=== PATIENT | female | born 2000 | race Caucasian/White ===

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

== ENCOUNTER 2019-04-07 17:45 | Emergency (ER) | payer MEDICAID, SELFPAY ==
[2019-04-07 17:47] VITALS: BP 149/95; PULSE 83; RESP 16; TEMP 36.4
[2019-04-07 17:48] VITALS: BP 149/95; PULSE 83; RESP 16; TEMP 36.4; BMI 25.9
[2019-04-07 20:42] LABS: Absolute Lymphocyte Count 2.04 X10^3/uL (0.83-4.51); Absolute Neutrophil Count 3.5 X10^3/uL (2.0-7.7); Basophil# 0.06 X10^3/uL; Eosinophil# 0.08 X10^3/uL; Eosinophils% 1.3 % (0-5); Hematocrit 46.6 % (37-47); Hemoglobin 15.6 g/dL (12.0-15.0); Lymphocyte # 2.04 X10^3/ul (4.0); Lymphocyte % 33.9 % (19-41); Mean Corp Hgb Conc 33.5 g/dL (32-36); Mean Corpuscular Volume 98.5 fL (81-99); Mean Platelet Vol. 10.4 fl (6.2-12.0); Monocyte# 0.28 X10^3/uL; Monocyte% 4.7 % (0-10); NRBC Flagged by Analyzer 0 % (0-5); Neutrophil # 3.54 X10^3/uL (2.7-7.7); Neutrophil % 58.8 % (47-70); Platelet Count 185 K/mm3 (150-450); RBC Distribution Width CV 11.7 % (11.6-14.6); RBC Distribution Width SD 42.8 fl (35.1-43.9); Red Blood Count 4.73 M/mm3 (4.2-5.4)
[2019-04-07 20:59] LABS: Anion Gap 6 (5-15); BUN 14 mg/dL (7-18); BUN/Creat Ratio 15.2 RATIO (10-20); Chloride 106 mmol/L (98-107); Creatinine, Serum 0.92 mg/dL (0.55-1.02); EST Glomerular Filtration Rate 82 mL/min (>60); Est Glom Filt Rate - Afr Amer 100 mL/min (>60); Estimated Creatinine Clearance 80.69 ml/min; Glucose 96 mg/dL (74-106); Sodium Level 137 mmol/L (136-145)
[2019-04-07 21:05] LABS: Internal QC Validated? YES +Cl - CLEAR BKGD; Pregnancy, Serum, hCG Quali. NEGATIVE Negative
[2019-04-07 21:49] VITALS: RESP 16
[2019-04-07 22:09] VITALS: PULSE 18
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
[2019-04-07 22:26] LABS: Amphetamine Urine VISTA NEGATIVE (<1000 ng/mL); Barbiturate Urine VISTA NEGATIVE (< 200 ng/mL); Benzodiazepine Urine VISTA NEGATIVE (< 200 ng/mL); Cocaine Urine VISTA NEGATIVE (< 300 ng/mL); Ecstacy Urine VISTA NEGATIVE (< 500 ng/mL); Methadone Urine VISTA NEGATIVE (< 300 ng/mL); PCP Urine VISTA NEGATIVE (< 25 ng/mL); THC Urine VISTA POSITIVE (< 50 ng/mL); Vista UDS pH Range 7
--- NOTE | 2019-04-07 22:28 | ED.DCSUM_ITS ---
History of Present Illness Chief Complaint: Mental Health Detail of Chief Complaint: Depression Informant: Patient, - - Aunt Onset: Weeks Narrative: Patient is a history bipolar disorder. She has previously been on buspirone, citalopram, Saphris, and gabapentin. This was prescribed by a nurse practitioner in [place]. Patient states she stopped taking the medications a month ago because they really were not helping her. Over the past 2 weeks she has noted worsening anxiety and depression. She has episodes where she feels very sad and slowly starts crying. Today she did cut her left forearm. She states she did it because she was upset and did feel something, not as a suicide attempt. Patient states he did not give her the end result that she thought it would, and does not want to cut again. Past Medical History - Allergies and Home Meds Allergies/Adverse Reactions: Allergies No Known Allergies Allergy (Verified 11/16/17 15:20) Primary Care Physician: Devin Gardner MD [Primary Care Provider] - Prior records reviewed: Yes Past Medical History: - - Reviewed Lives: With Family Smoking Status: Current every day smoker Review of Systems General: Denies: Chills, Fever Eyes: Denies: Visual changes - bilaterally ENT: Denies: Bilateral ear pain Cardiovascular: Denies: Chest pain Respiratory: Denies: Dyspnea Gastrointestinal: Denies: Abdominal pain, Nausea, Vomiting, Diarrhea Skin: Reports: Abrasions Neurological: Denies: Headache Psych: Reports: Depression, Anxiety Hematologic: Denies: Easy bruising Physical Exam Vital Signs/Narrative: Vital Signs Pulse Resp 04/07/19 22:09 18 L 04/07/19 21:49 16 Inital Vital Signs reviewed: Yes General: Well nourished, Well developed Head: Normocephalic ENT: Moist mucous membranes Neck: Supple Cardiovascular: Regular rate, Regular rhythm Respiratory: No distress, CTA bilaterally Abdomen: Soft, Nontender Extremities: Nontender Skin: - - Superficial linear abrasions on the volar left forearm. No full- thickness lacerations. Neurological: Alert, Oriented x3, Normal Strength, Normal Sensation Psychological: Normal affect, - - Patient cooperative and forthcoming when answering questions. She states she just wants to see someone surgically put back on medications and feel better. She denies suicidal ideation. She does feel that she can keep herself safe at home. Diagnostic/Tx/Re-eval - Medical Decision Making Patient was seen by social work as well as myself. Patient is able to safety plan at this time. We will set up intake at the counseling center for her tomorrow. She has tried behavioral health here previously but did not do well in the group therapy sessions. She feels that she would be more helped by an individual counseling program. Patient's aunt is at bedside with her. She agrees that the patient will be with family. They are encouraged to return if symptoms worsen. ED Disposition - Plan for ED Patient: Disposition: Home or Assisted Living Diagnosis: Depression Instructions: Depression Referrals: Counseling,Center [GROUP OF PHYSICIANS] - As soon as possible
[2019-04-07 22:52] VITALS: RESP 16
--- NOTE | 2019-04-09 14:56 | CM.ED ---
Social Work Follow-up call made to patient. Voicemail left requesting return phone call. Gisele ANDERSON, COLEMAN
== END 2019-04-07 22:53 | disposition home or self-care (01) ==
PROVIDERS: Emergency Provider Emergency Medicine; Family Provider Nurse Practitioner Family; PCP Family Medicine; Referring Provider Family Medicine
DX: F32.9 Major depressive disorder, single episode, unspecified (principal); F17.200 Nicotine dependence, unspecified, uncomplicated
CPT/HCPCS: 80048; 80307; 80320; 84703; 85025; 99283; G0480

== ENCOUNTER 2022-05-28 08:00 | Outpatient (RCR) | payer MEDICAID, SELFPAY ==
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
--- NOTE | 2022-05-28 09:00 | BH.SGPN.GN ---
Behaviors/Verbalizations/Mental Status: []Eye contact is good. Motor activity is appropriate. Appearance is casual. Speech is Appropriate. Mood is anxious. Affect is flat. Thoughts are linear and logical. No evidence of psychosis. Reviewed daily check in sheet and pt's scores were within pt's baseline. Client Response/Progress/Benefit: [] Pt responded somewhat well to session, quiet, but appeared to be listening to peers. Pt's first day of IOP tx and pt declined to share today. Pt received supportive statements from mechanical field engineer and peer. Pt appeared to benefit from not isolating today and connecting with peers. Pt is in IOP to gain healthy coping skills and reduce depression and anxiety. Pt will continue IOP tx to prevent decompensation, maintain safety, and learn healthy coping skills. Narrative Note: []
--- NOTE | 2022-05-28 10:10 | BH.SGPN.GN ---
Behaviors/Verbalizations/Mental Status: [] Eye contact is poor. Motor activity is appropriate. Appearance is casual. Speech is Appropriate. Mood is anxious. Affect is congruent. Thoughts are linear and logical. No evidence of psychosis. Client Response/Progress/Benefit: [] Pt had limited participation in group discussions. Active participant in experiential activity. Attentive during psychoeducation. Attentive as peers shared types of social supports which included; family, friends, PCP, mental health providers, support groups, pets, ourselves, community classes, etc. Attentive as group identified mental health benefits of social support which patient and group identified as; it can help with emotional release, help one to feel heard, validation, distraction, they can encourage us, provide motivation, provide accountability, and boost our mood. Attentive as peers worked together to identify obstacles to utilizing support which included; feeling like one doesn't deserve support, past negative experiences, cognitive distortions, and avoidance/mood. Benefited from increased awareness of mental health benefits of social support and obstacles that prevent one from utilizing support. Will continue in IOP to maintain safety, increase healthy coping skills, and prevent decompensation. Narrative Note: []
--- NOTE | 2022-05-28 14:06 | BH.COMM ---
Communication Note - Communication with Client Communication Note: Therapist met with pt to complete initial paperwork, CSSR assessment, and discuss pt goals for tx. Pt CSSR screening indicates a low to moderate risk for suicide on this date. Pt has had one prior attempt while in active cocaine addiction over 3 years ago in which pt unintentionally overdosed. Reports ambivilance to living when this occurred however. Denies any other attempts or gestures. Denies active SI, plan, or intent on this date. Reports hx of cutting/buring self-harm behaviors, however has not engaged in this in the past 3 years. Deneis any changes since original intake. Pt reports wanting to work on improving her overall emotion regulation skills and better managing sx of depression and anxiety. Expressed difficulties with maintaining healthy relationships and often struggles with healthy boundary setting. Pt would like to improve her healthy coping skills, better understand her mental health diagnosis, and improve relationship with self. Pt reports anxiety about the group setting and did not want to meet for full session. Will continue to encourage group tx and follow-up.
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
[2022-05-29 09:09] VITALS: BP 146/84; PULSE 77
--- NOTE | 2022-05-29 10:10 | BH.SGPN.GN ---
Behaviors/Verbalizations/Mental Status: []Pt alert and oriented, casually dressed and groomed. Eye contact good. Motor activity appropriate. Speech within normal limits. Affect constricted, mood anxious. Thoughts linear, logical, no signs of hallucinations or delusions. Client Response/Progress/Benefit: []Pt was a passive participant in group discussions, but took notes. Participated with peers in experiential activity. Pt participated in an interactive discussion with peers in which they worked together to define what coping skills are. Group then identified unhealthy coping skills which included; isolating, sleeping to avoid, drugs and alcohol, and constant distractions. Benefited from increased awareness and education the benefits of having a healthy coping repertoire and consequences of unhealthy coping on mental health and relationships. Will continue IOP tx to prevent decompensation, reduce avoidance, and increase knowledge of healthy coping skills. ? Narrative Note: []
--- NOTE | 2022-05-29 11:10 | BH.SGPN.GN ---
Behaviors/Verbalizations/Mental Status: []Client alert and oriented, casually dressed and groomed. Eye contact fair. Motor activity appropriate. Speech within normal limits, quiet. Affect constricted, mood dysthymic and anxious. Thoughts linear, logical, no signs of hallucinations or delusions Client Response/Progress/Benefit: []Client responded well to session, taking notes and contributing. Group discussed the different categories of coping skills which included distraction, emotional release, grounding, self-love, and thought challenging. Client participated in creating a coping skills ?menu? from the five categories of coping skills. Client's coping skill menu included: reading, weighted blanket, assertively communicate, doing the hard but better choice, and redirecting thoughts. Appeared to benefit from increasing repertoire of healthy coping skills. Will continue IOP to improve daily functioning, increase healthy coping, and prevent decompensation.
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
--- NOTE | 2022-05-29 12:33 | BH.DR.ITP ---
Initial Treatment Plan Patient Information Visit Information: ADMISSION DATE: EXPECTED LOS: 4-6 weeks Problems/Symptoms Problem #1:: Mood instability Symptom:: Sadness, hopelessness, worthlessness, anhedonia, biological disruption of sleep, low energy, decreased concentration, guilt, passive thoughts of , fleeting, passive suicidal ideation Problem #2:: Anxiety Symptom:: Worry, rumination, panic attacks, nightmares, flashbacks and avoidance
--- NOTE | 2022-05-30 10:10 | BH.SGPN.GN ---
Behaviors/Verbalizations/Mental Status: [] Eye contact is fair. Motor activity is appropriate. Appearance is casual. Speech is Appropriate. Mood is anxious. Affect is constricted. Thoughts are linear and logical. No evidence of psychosis. Client Response/Progress/Benefit: [] Pt was an engaged participant AEB listening attentively to others, taking notes, and engaging in activity. Attentive during psychoeducation. Along with peers was able to identify barriers to taking action on her mental health which included: fear of failure, the unknown, change, one's environment, past negative experiences, being passive, and fear of vulnerability. Identified several symptoms and stressors that she feels are holding her back from progress such as past trauma, addiction, negative thoughts, and toxic people. Benefited from increased self-awareness of obstacles. Will continue in IOP to improve daily functioning, increase healthy coping, and prevent decompensation.
--- NOTE | 2022-05-30 11:15 | BH.SGPN.GN ---
Behaviors/Verbalizations/Mental Status: []Client alert and oriented, casually dressed and groomed. Eye contact fair. Motor activity appropriate. Speech within normal limits. Affect constricted, mood anxious. Thoughts linear, logical, no signs of hallucinations or delusions. Client Response/Progress/Benefit: []Client responded well to session, taking notes and participating in worksheet discussion. Client connected with the zones of action/change and reported that making sustainable change comes from stepping out of one?s comfort zone into the learning zone. Client set a goal to gain control over her anxiety that leads to avoidance. Client reported her goal is to create a fear ladder that will slowly expose her to anxious situations to help decrease avoidance behaviors. Client identified support needed would be working with therapist to create fear ladder. Appeared to benefit from identifying a small goal to benefit mental health. Will continue IOP tx to increase healthy coping, improve daily functioning, and prevent decompensation.
--- NOTE | 2022-06-11 10:10 | BH.SGPN.GN ---
Behaviors/Verbalizations/Mental Status: []Pt alert and oriented, casually dressed and groomed. Eye contact good. Motor activity appropriate. Speech within normal limits. Affect flat, mood dysthymic. Thoughts linear, logical, no signs of hallucinations or delusions. Client Response/Progress/Benefit: []Attentive during psychoeducation on SMART (Specific, Measurable, Achievable, Realistic, Timely) goals AEB by note-taking. Attentive during group discussion on benefits to setting goals which group identified as; reduced anxiety, increased motivation, better relationships, and increase confidence. Attentive while peers identified obstacles to setting/completing goals which included; procrastination, mental health, believing they are too difficult, procrastination, self-doubt, and poor time management. Engaged during activity and was able to relate the activity to goal-setting topic. Benefited from increased awareness on benefits to goal-setting, obstacles to developing and following through with a goal, and strategies for setting goals. Pt missed last week due to self-reported medication side effects. Will continue in IOP to prevent decompensation, reduce avoidance, and improve daily functioning. ? Narrative Note: []
--- NOTE | 2022-06-11 11:10 | BH.SGPN.GN ---
Behaviors/Verbalizations/Mental Status: []Eye contact good. Alert and oriented. Motor activity is appropriate. Appearance is casual, grooming appropriate. Speech Appropriate. Mood is depressed and anxious. Affect is constricted. Thoughts are linear and logical. No evidence of psychosis or hallucinations. Client Response/Progress/Benefit: [] Client was attentive during discussion and engaged in activity portions of group. Willing to complete the worksheet challenging each participant to develop a personal SMART goal. Client chose the goal of getting up earlier each day she is not scheduled for IOP for the next week. Client stated this will benefit them by giving them more time to be productive as well as engage in activities they enjoy, reduce stress, and begin creating healthy new habits. Client identified barriers which included: lack of motivation to get up, difficulties falling asleep the night before, and anxiety. Client receptive to identifying solutions for these barriers and willing to begin working on this goal. Benefited from this group by developing a short-term SMART goal related to mental health. Will continue IOP tx to further improve emotion regulation and stress management, increase awareness of and use of healthy coping skills, and prevent decompensation. Narrative Note: []
--- NOTE | 2022-06-12 10:08 | BH.SGPN.GN ---
Behaviors/Verbalizations/Mental Status: []Pt alert and oriented, casually dressed and groomed. Eye contact good. Motor activity appropriate. Speech within normal limits. Affect flat, mood anxious and depressed. Thoughts linear, logical, no signs of hallucinations or delusions. Client Response/Progress/Benefit: []Pt participated at times during the group discussions. Participated during interactive discussion on defining conflict (internal/external) and possible benefits to conflict. Attentive during psychoeducation on conflict styles and engaged during small group activity in which peers identified the benefits and consequences to each conflict style. Pt identified that their primary conflict style as avoiding. Pt shared ?I avoid any type of conflict? due to fear which leads to pt feel unstable and having mental health crises per her report. Benefited from increased awareness of the impact of conflict styles in mental health. Will continue in IOP to reduce isolation, improve daily functioning, and increase use of healthy coping skills. ? Narrative Note: []
--- NOTE | 2022-06-12 10:59 | PCM.BH.PN_ITS ---
Progress Note Progress Note: History of Present Illness/Interim History: The patient is a 21-year-old single female with a history of borderline personality disorder, PTSD, depression, anxiety, history of cocaine abuse (3 years sober). I last saw the patient 2 weeks ago and at that time her Zoloft was increased to 200 mg p.o. daily. D oxepin was added to help with sleep but the patient said she still did not sleep on it for few days and it was discontinued by her outpatient psychiatric provider and trazodone was prescribed. Patient requested to have Seroquel decreased and it was discontinued by her outpatient provider 2 weeks ago. The patient states that since that time she has felt more anxious and is having more panic attacks. She is vomiting every day when her anxiety is bad and she is having panic attacks several times a day. She is unable to hold medication down well. She was unable to attend the IOP program last week due to the side effects from her increased anxiety after discontinuing Seroquel. Her hallucinations are less lately and much less noticeable. Patient denies any self-harm or thoughts of self-harm and feels she is benefiting from the IOP program. The patient states that the only thing that helps her anxiety is Ativan. She denies any signs of pritesh or pritesh. She states that Remeron also did not help her in the past. She still has path of passive thoughts of a few times a week and fleeting, passive suicidal ideation on most days. But she states that she would not ever commit suicide because she does not want to hurt her mother. She denies homicidal ideation, hallucinations or delusions or symptoms of pritesh. She has cut back on her use of energy drinks. She still snores and gasps loudly during the night and has not scheduled her sleep study. Current Psychiatric Medications: [] Adderall XR 25 mg p.o. every morning (off and on since age 4); Zoloft 200 mg p.o. daily (x2 weeks and (; trazodone 100 mg p.o. nightly; Mental Status Examination: [] Patient is a 21-year-old female who is overweight and wearing glasses with bilateral lateral nose piercings. She is casually dressed and groomed with good hygiene and ambulatory with a normal gait. She has no psychomotor agitation or retardation. She is cooperative during the interview. Eye contact is good and speech is normal rate and rhythm and fluent with no pressure. Mood is depressed. Affect is mildly constricted. Thought process is goal-directed and organized. Thought content: There is evidence of passive thoughts of and fleeting, passive suicidal ideation. There is no evidence of active suicidal ideation, homicidal ideation, hallucinations or delusions. Reality testing is intact. Intelligence is average. Judgment is intact. Insight is limited. Impulsivity is high. Diagnoses: [] 1. Bipolar, NOS (F31.9) 2. Borderline personality disorder 3. PTSD 4. Marijuana use disorder 5. History of cocaine use disorder in full remission for 3 years 6. Rule out sleep apnea 7. Financial, primary support and work issues Plan: [] The patient will continue the IOP program at [facility] as the structure, support, education and group therapy will hopefully prevent worsening of the patient's symptoms which might require hospitalization. The patient felt safe during the interview and if it anytime she does not feel safe she will let us know or go to the emergency room. The risk, options, possible complications and side effects of the medications were discussed with the patient again and she understands and accepts these. The patient agrees to try Zyprexa 2.5 mg p.o. twice daily in order to help with her anxiety, panic attacks and bipolar disorder. The patient also agrees to try Zofran 4 mg sublingual up to 3 times a day as needed for severe nausea and vomiting. The patient states that sometimes she is unable to hold her medications down when she feels very anxious. She agrees to schedule sleep study to rule out obstructive sleep apnea as the patient has history of never feeling rested and never sleeping well and her fianc? says she snores and gasps at night. Prescription is sent in for the Zyprexa and Zofran. I will see the patient in follow-up in 2 weeks and she will continue to follow-up with her outpatient providers.
--- NOTE | 2022-06-12 11:08 | BH.SGPN.GN ---
Behaviors/Verbalizations/Mental Status: []Pt alert and oriented, casually dressed and groomed. Eye contact good. Motor activity appropriate. Speech within normal limits. Affect congruent, mood euthymic. Thoughts linear, logical, no signs of hallucinations or delusions. Client Response/Progress/Benefit: []Pt engaged in session AEB contributing to discussion and engaging in activity. Pt did well to review current conflict style and its impact on mental health. Attentive and taking notes during discussion on strategies for more effectively managing conflict in personal life.? Pt participated in activity and did well to talk through choices with peers. Pt given handout on fair fighting rules and identified that they want to work on no yelling and taking a time out when things get heated. Pt shared she struggles with managing her emotions during conflict and sees how this causes more issues. Appeared to benefit from gaining strategies to help pt better manage conflict. Will continue IOP tx to prevent decompensation, improve daily functioning, and improve use of healthy coping skills. Narrative Note: []
--- NOTE | 2022-06-12 13:50 | BH.MDN ---
Multi-Disciplinary Note - Note 45-min Individual Time Started:: 09:17 Date: 06/11/22 Purpose of session/treatment goals addressed:: Purpose of session was to address goals 1 and 2 from MTP. Eye Contact:: Good Motor Activity:: Appropriate Appearance:: Casual Speech:: Appropriate Mood:: Anxious, Irritable, Depressed Affect:: Congruent Thoughts:: Linear, Logical, No evidence of hallucinations/delusions noted Staff Interventions:: psychoeducation on: - Anxiety maintenance cycles and impacts of anxiety on emotion regulation, CBT techniques, mindfulness skills, other - created a morning grounding routine. Client Response:: Client reported she has been struggling with effectively managing her mental health sx, specifically that of depression in the past two weeks. Reports that she has ?been laying in bed the past two weeks? due to being ill. Discussed no energy or desire to ?do anything? and as though her ?brain is mush?. Went on to indicate beliefs that some of her sx are related to her outpatient psychiatrist recently stopping her Seroquel. Request meeting with program psychiatrist regarding concerns for increased grogginess and potential increase in hallucinations. Went on to discuss that client?s primary concern today is managing her anxiety. Reports experiencing anxiety several times throughout the day and that this is worst in the morning upon first waking up. Shared some triggers for her anxiety include being alone, things not going according to a previously identified plan, and sensory related triggers. Noted that she difficulties completing daily tasks when anxious, often cancels plans, or has lashed out/become more irritable with experiencing an influx in anxiety. Shared feeling anxious about coming to group at times when she wakes up and her anxiety is worse. Client and therapist reviewed client?s morning routine and discussed the importance of making time for a consistent morning self-care and grounding routine prior to beginning the day. Client able to see how this may aid in reducing overall anxiety levels is she does not get up and immediately johnson to begin her day. Identified plans to begin incorporating coloring or deep breathing activities each morning. Will continue to follow-up regarding pt application of healthy grounding/anxiety management skills. Risks/Concerns:: Denies active suicidal ideation, plan or intention to date. Reports chronic passive SI which is pt's baseline. Progress Toward Goals/Plan:: Client progress variable. Client has increased comfort in the group setting and is more actively engaged in group sessions. Does well to remain engaged in individual sessions as well. However, due to recent illness, client has missed several days of scheduled tx and reports increased isolation and depressive sx as a result. Client has struggled with a primary external locus of control and application or healthy stress management skills, which seems to be barrier to treatment progress. Client spends most days sitting in her home cleaning or watching tv. Plan is to continue IOP to increase consistent socialization, improve anxiety management, and prevent decompensation.
--- NOTE | 2022-06-13 09:05 | BH.SGPN.GN ---
Behaviors/Verbalizations/Mental Status: [] Eye contact is good. Motor activity is appropriate. Appearance is casual. Speech is Appropriate. Mood is depressed. Affect is flat. Thoughts are linear and logical. No evidence of psychosis. Reviewed daily check in sheet and pt reports 3/5 for suicidal ideations and 2/5 for intent. This has been baseline for pt. Client Response/Progress/Benefit: [] Pt participated at times during the group discussion. Participated in group mindfulness exercise (5 senses). Daily symptom tracker notes 5/5 for depression and anxiety and 2/5 for self-harm urges. Emotion for today is sad. Mental health win was Getting to IOP and starting laundry. Reports poor sleep last night and poor motivation. Struggles to complete daily tasks and currently is not attempting to utilize coping skills, reframe thoughts, or complete opposite action. Group empathized with her struggles and offered feedback/suggestions however pt was at times dismissive of any intervention to cope with distress or improve thoughts/mood. Benefited from group support and encouragement. Will continue in IOP to prevent decompensation, maintain safety, and improve functioining. Narrative Note: []
--- NOTE | 2022-06-13 10:05 | BH.SGPN.GN ---
Behaviors/Verbalizations/Mental Status: []Eye contact is good. Alert and oriented. Motor activity is appropriate. Appearance is casual. grooming is appropriate. Speech is Appropriate. Mood is depressed and anxious. Affect is constricted. Thoughts are linear and logical. No evidence of psychosis or hallucinations. Client Response/Progress/Benefit: []Client active participate AEB listening attentively to others and providing contributions throughout. The group identified impacts of not managing emotions on communication as lashing out, stone-walling, not retaining information, and monopolizing the conversation. Client stated she often avoids addressing the issue or her emotions when upset. Connected with how this can impede resolving the issue at hand or further effect emotion regulation. Client engaged in activity, able to manage emotions in the moment. Client benefited from session to gain understanding on the importance of managing emotions to improve daily functioning. Client will continue IOP to increase use of healthy distress tolerance and emotion regulation skills, challenge negative thoughts, and prevent decompensation. Narrative Note: []
--- NOTE | 2022-06-13 11:15 | BH.SGPN.GN ---
Behaviors/Verbalizations/Mental Status: []Pt alert and oriented, casual appearance. Eye contact good. Motor activity appropriate. Speech within normal limits. Affect constricted, mood dysthymic. Thoughts linear, logical, no signs of hallucinations or delusions. Client Response/Progress/Benefit: []Pt engaged in session AEB pt listening attentively to peers, taking notes, and providing input. Attentive during psychoeducation on 4 zones of regulation. Pt able to identify feelings and behaviors pt exhibits for each zone.? Pt identified coping skills one can use to support self in each zone. Pt shared coping skills she is willing to practice include: setting daily goals, breathing techniques, and venting. Pt shared she is mostly in the yellow zone (anxious) and recognizes constantly being in this zone isn't healthy for her. Benefited from increased education on zones of regulation or stages of alertness for emotions and healthy coping skills to use for each zone. Pt is to continue IOP to improve daily functioning, increase consistent use of healthy coping, and prevent decompensation.
== END 2022-06-15 23:59 ==
LOC: BHIOP 08:00
PROVIDERS: PCP Family Medicine; Visit Provider Psychiatry & Neurology Psychiatry
DX: F31.9 Bipolar disorder, unspecified (principal); F60.3 Borderline personality disorder; F43.10 Post-traumatic stress disorder, unspecified; F12.90 Cannabis use, unspecified, uncomplicated; F14.91 Cocaine use, unspecified, in remission; Z79.899 Other long term (current) drug therapy
CPT/HCPCS: 90792; 99214; H2012; H2020; S9480; T1002; 90834

== ENCOUNTER 2022-06-18 07:30 | Outpatient (RCR) | payer MEDICAID, SELFPAY ==
[2022-06-16 00:39] VITALS: BP 146/84; PULSE 77
--- NOTE | 2022-06-18 09:00 | BH.SGPN.GN ---
Behaviors/Verbalizations/Mental Status: []Eye contact fair, casually dressed, motor activity appropriate, speech normal rate and tone, mood anxious and dysthymic, congruent affect, thoughts linear and intact, no evidence of delusions or hallucinations. Reviewed pt's symptom tracker, reports suicidal ideation within pt baseline and denies active plan or intent as of this date 06/18/22. Client Response/Progress/Benefit: []Pt responded well to session, attentive and providing supportive feedback throughout. Pt reports feeling ?down this morning as she is struggling with anticipatory grief associated with an upcoming trauma anniversary date. Receptive of supportive feedback provided by group. Pt reports her 3 year sobriety anniversary is this week which is a major accomplishment for her and something she has been really proud of. Pt discussed an additional win as using several anxiety management skills to attend a family event with her fianc?. Appeared to benefit from group discussion and supportive environment. Recommended continued IOP tx to continue to improve consistency of healthy skill application, maintain mood stability, as well as prevent decompensation. Narrative Note: []
--- NOTE | 2022-06-18 15:19 | BH.MDN ---
Multi-Disciplinary Note - Note 60-min Individual Time Started:: 10:23 Date: 06/18/22 Purpose of session/treatment goals addressed:: Purpose of session was to address goals 1 from MTP. Discussed coping plan for upcoming trauma trigger. Eye Contact:: Good Motor Activity:: Appropriate Appearance:: Casual Speech:: Appropriate Mood:: Anxious, Irritable, Depressed Affect:: Congruent Thoughts:: Linear, Logical, No evidence of hallucinations/delusions noted Staff Interventions:: thought challenging, psychoeducation on: - Communication strategies, CBT techniques, strengths perspective, other - created a coping plan for upcoming trauma anniversary date. Client Response:: Client reported she continues to have difficulties with what she believes to be side effects of her medication. Reports frustration and feeling as though she is ?talking to a wall? as her outpatient psychiatrist and program psychiatrist have both indicated that her sx may not be medication related. Discussed primary sx as paranoia that ?everyone hates me and is out to get me?. Noted this occurs regardless of her relationship with the individual. Discussed feeling as though people ?don?t care at all? and provided an example in which client recently reached out to her fianc? and felt he was unable to provide her with the support she needed. Shared that she had not specifically asked for a particular type of support and upon further discussion was able to recognize that she has assumed he would know what she needed in the moment. Discussed not knowing how to communicate specific support needs with him. Pt identified not always knowing what she needs in the moment which is often a barrier to communication. Shared that she had wanted physical comfort but he had tried to provide verbal emotional support. Went on to discuss that the stressor had been related to the upcoming anniversary of her aunt?s and experiencing complicated grief associated with this. Willing to process with therapist and create a healthy coping plan for the actual anniversary date next Friday. Identified a plan to communicate what she specifically needs from her supports ahead of time. Plan is for client to attend group on that date, as well as spend the afternoon watching her aunts favorite shows with her mother. Client additionally discussed wanting to learn some in the moment emotion regulation skills she can use as she expressed struggling with increased anxiety and irritability when feeling upset or misunderstood. Receptive of learning the DBT skill: TIPP. Shared plans to practice this throughout the next week as well. Risks/Concerns:: Reports increased self-harm urges; however, denies any active plans or intent to engage in self-harming behaviors. Denies active suicidal ideation, plan or intention to date, 06/18/22. Progress Toward Goals/Plan:: Client progress continue to be variable. Client continues to report difficulties in managing her emotions, specifically during times of increased stress or anxiety. Reports limited application of healthy skills outside of treatment environment and noted limited motivation, as well as lack of awareness of her emotions in the moment. Receptive of learning DBT TIPP skill and reports willing to begin implementing this. Reports willingness to also reach out to her mother for support, practice self-care, and attend group on her trauma anniversary date next week. Plan is to continue IOP to increase healthy coping skill application, improve anxiety management, and better regulate emotions. Time Stopped:: 11:33
--- NOTE | 2022-06-19 09:05 | BH.SGPN.GN ---
Behaviors/Verbalizations/Mental Status: []Pt alert and oriented, casually dressed and groomed. Eye contact good. Motor activity appropriate. Speech within normal limits. Affect constricted, mood irritable. Thoughts linear, logical, no signs of hallucinations or delusions. Reviewed pt?s symptom tracker and pt denies any active SI, plan, or intent as of 06/19/2022. ? Client Response/Progress/Benefit: [] Pt responded well to session, attentive and receptive to feedback. Pt reports feeling frustrated this morning as pt went to go get a medication from the pharmacy which gives pt anxiety and the wait too forever. The group offered resources and suggestions for getting medication deliveries. Pt stated it is a win that she went to get the medications instead of avoiding. Pt also acknowledged that her attendance in IOP tx has been consistent and she is more verbal in groups. Pt reports ongoing stress with her roommates which triggers irritability and bottling up her emotions. Pt encouraged to talk with roommates before her emotions become unmanageable. Pt will continue IOP tx to prevent use of unhealthy coping skills, improve daily functioning, and reduce isolation. Narrative Note: []
--- NOTE | 2022-06-19 10:10 | BH.SGPN.GN ---
Behaviors/Verbalizations/Mental Status: [] Eye contact is poor. Motor activity is appropriate. Appearance is casual. Speech is Appropriate. Mood is depressed/irritable. Affect is congruent. Thoughts are linear and logical. No evidence of psychosis Client Response/Progress/Benefit: [] Pt participated when prompted. Attentive during psychoeducation. Attentive as peers provided thoughts and feedback on the definition of crisis and types of crisis events. Attentive during interactive discussion in which group identified unhealthy responses to crisis which included; alcohol use, drug use, sleeping to escape, binge-eating, lashing out at others, creating conflict to distract, isolating, avoiding responsibilities, not caring for oneself, and overspending. Pt was able to identify her top warning signs for being in crisis which were isolation, oversleeping, and erratic temper. Benefited from increased understanding of crisis and pt's personal crisis warning signs. Will continue in IOP to maintain safety, prevent decompensation, and improve functioning. Narrative Note: []
--- NOTE | 2022-06-19 10:49 | BH.TPR ---
Treatment Plan Review Date of Admission:: 05/28/22 Date of Treatment Plan Review:: 06/19/22 Admitting Diagnoses:: 1. Bipolar, NOS (F31.9). 2. Borderline personality disorder. 3. PTSD. 4. Marijuana use disorder. 5. History of cocaine use disorder in full remission for 3 years Current Diagnoses:: 1. Bipolar, NOS (F31.9). 2. Borderline personality disorder. 3. PTSD. 4. Marijuana use disorder. 5. History of cocaine use disorder in full remission for 3 years Patient's Response to Treatment:: Pt responding mostly well to treatment AEB pt consistently attending IOP sessions and engaged in individual sessions. Pt however does struggle with engaging/contributing to group discussions without being prompted, and self-reports inconsistent effort in applying skills outside treatment, noting that she is easily discouraged when a skill does not appear to work initially. Status of Current Problems and Symptoms: Ongoing problems. Pt's mood tends to be directly impacted by her current life circumstances and external stressors. Pt recently reporting more anxiety and depression due to an upcoming trauma anniversary, as well as recent conflict with her roommates. Pt has been working to create a healthy coping plan for managing her upcoming trauma anniversary; however, continues to struggle with healthy use of assertive communication and boundary setting within her interpersonal relationships. This continues to reinforce negative thought patterns and depression.Limited progress could be attributed to recent trauma anniversary and psychosocial stressors. Problem #1 Problem Name:: Mood instability Status of Goals:: Obj 1 - partially met. Pt is able to identify healthy coping skills like opposite action, changing environment, deep breathing, and healthy/calming distractions. However, struggles significantly with consistent application of these skills. Per pt's DSM 5 at review her scores indicate a no reduction in depressed symptoms compared to intake scores. Obj 2 - partially met, ongoing work encouraged. Pt is able to identify distorted thought patterns, however does struggle with independently challenging thoughts. Especially in moments of increased agitation. Team Recommendations:: Team recommends pt continue to work on in the moment coping strategies, challenging perspective, and continued focus on consistent use of skills outside treatment environment. Problem #2 Problem Name:: Anxiety Status of Goals:: Obj 1 - partially met. Pt is able to identify calming skills like deep breathing, grounding tools, and talking with supports. However, pt struggles with use of skills consistently. Obj 2 - Partially met. Per pt's DSM 5 scores at review scores indicate a 8% decrease in anxiety compared to her intake scores. Limited progress could be attributed to recent trauma anniversary and psychosocial stressors. Team Recommendations:: Team recommends pt continue to work on in the moment coping strategies and continued focus on consistent use of skills outside treatment environment.
--- NOTE | 2022-06-19 11:10 | BH.SGPN.GN ---
Behaviors/Verbalizations/Mental Status: []Client alert and oriented, casually dressed and groomed. Eye contact fair. Motor activity appropriate. Speech within normal limits. Affect constricted. Mood dysthymic. Thoughts linear, logical, no signs of hallucinations or delusions. Client Response/Progress/Benefit: []Client responded well to session as evidenced by client listening attentively to others and providing strategies during discussion. Client identified her warning signs for crisis and gained further awareness of earliest warning signs. Client created a crisis action plan to help client better manage warning signs for crisis. Client?s action plan for isolation/pushing others away included: ask supports to hang out, finding more myron in the little things, reaching out to family and friends, opposite action, and finding something she likes to do. Client appeared to benefit from creating a crisis action plan and increasing self-awareness. Client to continue IOP tx to increase consistent use of healthy coping skills, improve ability to identify and challenge distorted thoughts, and prevent decompensation.
--- NOTE | 2022-06-20 09:03 | BH.SGPN.GN ---
Behaviors/Verbalizations/Mental Status: []Eye contact fair to good, casually dressed, motor activity appropriate, speech normal rate and tone, mood depressed, congruent affect, thoughts linear and intact, no evidence of delusions or hallucinations. Reviewed pt's symptom tracker, reports suicidal ideation within pt baseline and denies active plan or intent as of this date 06/20/22. Client Response/Progress/Benefit: []Pt responded well to session, attentive and providing some supportive feedback throughout. Pt reports feeling tired this morning and shared feeling tempted to cancel group as a result, however was able to use opposite action in order to get to IOP tx this morning. Able to recognize this as a mental health win. Additional win noted as using thought challenging to help her no to ruminate on recent frustrations with her roommates. Went on to discuss her primary stressor at this time as the upcoming anniversary of her aunt?s . Shared struggling with knowing how to cope or manage her emotions as a result. Pt receptive of and appearing to benefit from supportive feedback and coping suggestions from the group. Identified plans to watch her aunt?s favorite show and light a candle that reminded her of her aunt to help honor her memory in healthy ways. Identified plans to come to IOP tx on that date as well. Recommended continued IOP tx continue to improve mood stability and application of emotion regulation skills, as well as prevent decompensation. Narrative Note: []
--- NOTE | 2022-06-20 10:05 | BH.SGPN.GN ---
Behaviors/Verbalizations/Mental Status: []Pt alert and oriented, casually dressed and groomed. Eye contact good. Motor activity appropriate. Speech within normal limits. Affect congruent, mood calm. Thoughts linear, logical, no signs of hallucinations or delusions. Client Response/Progress/Benefit: []Pt was an active participant in group discussions. Attentive during psychoeducation and participated in interactive discussions in which group defined self-care, discussed the benefits to self-care, and identified common myths surrounding self-care. Pt shared that lack of self-care can turn into a mental health crisis. Pt and peers broke into smaller group and worked together to bust the myths associated with self-care. Pt?s group worked on myths of self-care is selfish, you should be able to ?push through,? and self-care takes too much time. Benefited from increased awareness of the self-care and its benefits. ?Will continue in IOP to reduce avoidance, improve mood stability, and increase the use of healthy coping skills. Narrative Note: []
--- NOTE | 2022-06-20 11:10 | BH.SGPN.GN ---
Behaviors/Verbalizations/Mental Status: []Pt alert and oriented, casually dressed and groomed. Eye contact fair. Motor activity appropriate. Speech within normal limits. Affect constricted, mood anxious and dysthymic. Thoughts linear, logical, no signs of hallucinations or delusions. Client Response/Progress/Benefit: []Pt engaged participant AEB completing self-assessment worksheet and providing some input throughout discussion. Participated in group discussion on the various areas of self-care. Pt completed worksheet identifying current self-care practices and what self-care activities pt wants to start using. Pt selected emotional self-care to begin practicing more consistently. Pt plans to do this by acknowledging her own accomplishments, setting boundaries, and letting herself feel her emotions. Appeared to benefit from completing the self-care evaluation and gaining insights into current self-care practices, as well as identifying areas in which she would like to improve upon. Will continue IOP tx to challenge distorted thoughts, improve emotion regulation, and prevent decompensation.
--- NOTE | 2022-06-24 09:00 | BH.SGPN.GN ---
Behaviors/Verbalizations/Mental Status: []Pt alert and oriented, casually dressed and groomed. Eye contact good. Motor activity appropriate. Speech within normal limits. Affect constricted, mood disconnected. thoughts linear, logical, no signs of hallucinations or delusions. Reviewed pt?s symptom tracker, no risk for suicidal ideation, plan, or intent as of 06/24/22. Pt's scores are within her baseline. Client Response/Progress/Benefit: []Pt responded well to session, attentive and receptive to feedback. Pt reports feeling distant and indifferent this morning. Pt shared she has not slept very well because this is the week of the anniversary of her aunt's . Pt was close with her aunt and this anniversary made pt want to isolate, but pt knew this would make her feel worse. Pt also used opposite action today to do her makeup and pt recently went to the dentist which pt had been avoiding for 5 years. Pt appeared to benefit from processing her grief and receiving support. Pt's progress continues to be mild due to pt's self-report of limited application of coping skills outside of IOP. Pt will continue IOP tx to promote use of healthy coping skills, reduce self-sabotage, and increase distress tolerance skills. Narrative Note: []
--- NOTE | 2022-06-24 11:10 | BH.SGPN.GN ---
Behaviors/Verbalizations/Mental Status: []Eye contact is good. Motor activity is appropriate. Appearance is casual. Speech is Appropriate. Mood is agitated and dysthymic. Affect is congruent. Thoughts are linear and logical. No evidence of psychosis. Client Response/Progress/Benefit: []Pt was an active participant in the group activity which involved working with peers to answer questions related to psychoeducation on cognitive distortions. Questions were posed in the fashion of Jeopardy and the categories included; Identifying the Cognitive Distortion, Ways to reframe cognitive distortions, Examples of cognitive distortions, and other areas related to cognitive distortions. This was an engaging way to help reinforce psychoeducation and to help client retain the information through examples and practicing. Pt was engaged in the game and with peers on collaborating to determine the answers. Identified one take away from the group as ?your brain can invent problems that a lot of times may not be real?. Benefited from rehearsing ways to challenge/reframe cognitive distortions and by gaining increased insight into examples/definitions of 10 most common cognitive distortions. Will continue in IOP to maintain gains and prevent decompensation. Narrative Note: []
--- NOTE | 2022-06-25 15:21 | BH.MDN_ITS ---
Multi-Disciplinary Note - Note 60-min Individual Time Started:: 09:08 Date: 06/25/22 Purpose of session/treatment goals addressed:: Purpose of session was to address goals 1 & 2 from MTP. Additionally, worked with pt to address current stressors impacting ability to maintain consistent progress. Eye Contact:: Good Motor Activity:: Appropriate Appearance:: Casual Speech:: Appropriate Mood:: Irritable, Depressed Affect:: Congruent Thoughts:: Linear, Logical, No evidence of hallucinations/delusions noted Staff Interventions:: thought challenging, motivational interviewing - identified barriers to utilizing identified skills, CBT techniques, strengths perspective, completed risk assessment / safety planning - reviewed and edited previously created coping plan for trauma anniversary tomorrow. Provided pt with resources for grief support hotlines Client Response:: Pt receptive of session, engaged throughout. Reports anxiety as tomorrow is the anniversary date of her aunt?s . Reported ?each year this is the worst day of my life, and each year it just gets worse?. Shared ambivalence to following through with the coping plan identified in session last week, noting ?I kind just want to turn off my phone and sleep. I know no one?s going to get it and it?s just going to be miserable?. Pt noted she had hoped to come to group however does not think she will be able to. Shared she cannot get a ride and does not want to ask her roommates, stating ?they?re lazy and will just say no. Pt able to recognize use of distortions such as predicting the future and all or nothing thinking; however, unwilling to challenge these. Initially declined wanting to attend group virtually, expressing beliefs that virtual tx is not as effective. However, upon further discussion, reports willingness to consider doing so in order to prevent completely isolating herself, and well as provide emotional support. Therapist used motivational interviewing tools to encourage pt to identify self-care activities she could engage in to improve her ability to cope and prevent ruminating on unhelpful thoughts. Reports in the past struggling with increased ambivalence to living on this trauma anniversary date and thoughts of ?I don?t want to exist in a world that my aunt isn?t in?. Upon further exploration, pt shared she does not actually feel this way but is struggling with effectively managing her grief and does not know how else to express this. Denies active SI, plan, or intent, and feels she will be able to maintain safety tomorrow. Pt discussed that she and her aunt had both struggled with addiction and that she would benefit from being able to attend an AA or NA meeting tomorrow, however does not have transportation in order to do so. Although pt does not prefer virtual meetings, she was open to resources for virtual AA/NA meetings tomorrow should she change her mind. Additionally receptive of resources for grief support lines pt can contact if needed. Encouraged to practice self-care tomorrow as well. Initially struggled with identifying self-care activities. However, with further encouragement and in reviewing activities she has previously enjoyed, pt identified plans to trying painting tomorrow. Noted this has provided emotional support for her at times in the past. Will additionally call to check-in with therapist tomorrow afternoon as well. Risks/Concerns:: Reports increased ambivalence towards life; however, denies any active plans or intent to engage in self-harming behaviors. Denies active suicidal ideation, plan or intention to date, 06/25/22. Progress Toward Goals/Plan:: Some regression noted. Pt self-reports not utilizing the skills reviewed in previous session and denies plans to follow through with grief coping plan for trauma anniversary date tomorrow. Pt self- reports lack or motivation and not being open to believing her current reality can improve. This, as well as pt beliefs that her medications need adjusted further, continue to impede consistent progress. Pt is scheduled with psychiatry tomorrow however reports she will not be able to attend due to lack of transportation and not wanting to attend group via zoom. Therapist will continue to encourage her to do so. Pt is to continue IOP to increase healthy coping skill application, improve mood stability, and prevent decompensation. Time Stopped:: 09:58
--- NOTE | 2022-06-26 09:10 | BH.SGPN.GN ---
Behaviors/Verbalizations/Mental Status: []Eye contact fair to good, casually dressed, motor activity appropriate, speech normal rate and tone, mood anxious and depressed, constricted affect, thoughts linear and intact, no evidence of delusions or hallucinations. Reviewed pt's symptom tracker, reports suicidal ideation within pt baseline and denies active plan or intent as of this date 06/26/22. Client Response/Progress/Benefit: []Pt attentive throughout group session and listened as fellow participants shared. She however declined to process with the group and indicated feeling glad she at least got to group today. Noted this is a difficult day for her as it is the anniversary of her aunt?s and she is glad to have some support today. Appeared to benefit from group discussion and supportive environment. Recommended continued IOP tx to continue to improve consistency of healthy skill application, promote mood stability, as well as prevent decompensation. Narrative Note: []
--- NOTE | 2022-06-26 10:10 | BH.SGPN.GN ---
Behaviors/Verbalizations/Mental Status: []Eye contact is fair. Motor activity is appropriate. Appearance is casual. Speech is Appropriate. Mood is depressed. Affect is flat. Thoughts are linear and logical. No evidence of psychosis. Client Response/Progress/Benefit: []Pt was mostly a passive participant in group discussion. Attentive during psychoeducation on different types of anxiety disorders. Peers provided insight on the definition of anxiety as well as the impact of anxiety which include; not functioning, isolating at home, lack of personal growth, and avoidance. Pt identified her physical symptoms of anxiety which were shaking, increased heart rate, and numbness. Pt identified personal safety behaviors as avoidance of places and people and withdrawing from support. Benefited from increased insight and awareness from group discussions. Pt is to continue IOP to prevent decompensation, reduce isolation, and improve distress tolerance skills. Narrative Note: []
--- NOTE | 2022-06-26 11:49 | PCM.BH.PN_ITS ---
Progress Note Progress Note: History of Present Illness/Interim History: The patient is a 21-year-old female seen in follow-up at the [facility] behavioral health IOP program who has a history of borderline personality disorder, PTSD, depression, anxiety and history of cocaine abuse (3 years sober). I last saw the patient 2 weeks ago. The patient states that she continues to be anxious and has some nausea and vomiting at times from her anxiety. However she states that she has not been taking the Zofran so her history is somewhat inconsistent as to the severity of symptoms. She feels that she is taking the Zyprexa but that is not helping at all. The patient also did not disclose at the last visit that she was actually prescribed Abilify 10 mg p.o. nightly. She states that she hardly takes it because she does not feel good when she takes it. Patient denies any real improvement and states that she has panic attacks multiple times per day every day and . She feels that the only medication that works for her is Ativan but she has not had this medication for many years. She still has occasional, fleeting thoughts of self-harm but has not self harmed for several months. She does have passive thoughts of often but denies any active or passive suicidal ideation, plan for suicide, homicidal ideation, hallucinations or delusions. No symptoms of pritesh. She still feels that she is not sleeping well and has been awake for the last 2 days. She states that she has to urinate 5 times a night but denies that she drinks a lot of liquid before bedtime. The patient states that she plans on discussing an immediate release form of Adderall with her outpatient psychiatrist because she is concerned that maybe she takes her Adderall too late in the day and it interferes with her sleep. The patient is engaged in the IOP program according to staff to some extent but has had mild progress. Current Psychiatric Medications: [] Adderall XR 25 mg p.o. every morning; Zoloft 200 mg p.o. daily; trazodone 100 mg nightly; Zyprexa 2.5 mg p.o. twice a day; Zofran 4 mg as needed nausea but not needing it much. Abilify 10 mg p.o. once daily but not taking this much and did not tell if she was on this until today. Mental Status Examination: [] Patient is a 21-year-old overweight aroldo ni who is seen wearing glasses and has bilateral nose piercings. She appears normal for stated age and is casually dressed and groomed with good hygiene. She is ambulatory with a normal gait and has no psychomotor agitation or retardation. Speech is normal rate and rhythm and fluent with no pressure and eye contact is good. Mood is depressed. Affect is constricted. Thought process is goal-directed and organized. Thought content: There is evidence of passive thoughts of but there is no evidence of suicidal ideation, plan for suicide, homicidal ideation, hallucinations, delusions or symptoms of pritesh. Reality testing is intact. Judgment is intact. Insight is fair but limited. Impulsivity is high. Diagnoses: [] 1. Bipolar, NOS (F31.9) 2. Borderline personality disorder 3. PTSD 4. Marijuana use disorder 5. History of cocaine use disorder in full remission for 3 years 6. Rule out sleep apnea 7. Financial, primary support and work issues Plan: [] The patient will continue the IOP program at [facility] as the structure, support, education, and group therapy will hopefully prevent worsening of the patient's symptoms which might require hospitalization. The patient felt safe during the interview and if it anytime she does not feel safe she will let us know or go to the emergency room. The risk, options, possible complications and side effects of the medications were again discussed with the patient and she understands and accepts these. The importance of compliance was discussed with the patient. Patient is instructed to discontinue her Abilify since she is not taking it because she says she hates how she feels when she takes it. Discussed with the patient that I would not have put her on Zyprexa if I knew she was on Abilify. She will continue the Zyprexa but change it to 5 mg p.o. nightly to see if it can help with sleep. No other medication changes were made today. The patient will continue to follow-up with her outpatient providers and she is strongly encouraged to get the sleep study we recommended at last visit which she has not obtained yet. For primary care doctor or outpatient provider or unwilling to order it we can order it from our program. I will see the patient in follow-up while in the IOP program.
--- NOTE | 2022-06-27 09:05 | BH.SGPN.GN ---
Behaviors/Verbalizations/Mental Status: [] Eye contact is poor. Motor activity is appropriate. Appearance is disheveled. Speech is Appropriate. Mood is depressed. Affect is flat. Thoughts are linear and logical. No evidence of psychosis. Client Response/Progress/Benefit: [] Pt did not participate in group discussions. Attentive at times. When asked if she wanted to share she stated I don't have anything new to say. She answered the day's ice breaker question. Smiling and nodding in agreement at times during group. Unsure if any progress noted as pt choose not to check in, however she was overheard telling staff after group that she enjoyed IOP and never wanted to leave. Will continue in IOP to maintain safety, improve functioning, and increase healthy coping skills. Narrative Note: []
--- NOTE | 2022-06-27 10:10 | BH.SGPN.GN ---
Behaviors/Verbalizations/Mental Status: []Pt alert and oriented, casually dressed and groomed. Eye contact good. Motor activity appropriate. Speech within normal limits. Affect congruent, mood dysthymic. Thoughts linear, logical, no signs of hallucinations or delusions. Client Response/Progress/Benefit: []Pt responded well to session AEB taking notes throughout and listening attentively to others. Pt was attentive throughout group activity identifying famous individuals and how they overcame failure to be successful. Pt helped group identify how fear of failure can impact mental health and relationships. Pt identified fear of failure can lead to isolation and not reaching personal goals. Pt participated in experiential activity and used group for support as needed. Appeared to benefit from increased knowledge of fear of failure. ?Will continue IOP tx to prevent decompensation, challenge distortions, and increase mood stability. ? Narrative Note: []
--- NOTE | 2022-06-27 11:15 | BH.SGPN.GN ---
Behaviors/Verbalizations/Mental Status: []Pt alert and oriented, casually dressed and groomed. Eye contact good. Motor activity appropriate. Speech within normal limits. Affect congruent, mood content. Thoughts linear, logical, no signs of hallucinations or delusions. Client Response/Progress/Benefit: []Pt responded well to session, engaged in the experiential activity and attentive throughout group processing. Pt completed fear of failure worksheet and was able to identify thoughts and behaviors that reinforce personal fear of failure including not setting boundaries, telling herself she is not good enough, and lack of communication. Pt shared fear of failure has kept pt from getting her license and getting her GED. Pt participated in small group discussion regarding strategies to overcome fear of failure. Identified implementing opposite action and using affirmations. Appeared to benefit from increased knowledge of strategies to combat fear of failure and gaining self-awareness. Pt will continue IOP tx to prevent decompensation, increase use of healthy coping skills, and reduce isolation. Narrative Note: []
--- NOTE | 2022-07-02 09:01 | BH.SGPN.GN ---
Behaviors/Verbalizations/Mental Status: [] Eye contact is fair. Motor activity is appropriate. Appearance is casual. Speech is Appropriate. Mood is euthymic and anxious. Affect is congruent. Thoughts are linear and logical. No evidence of psychosis. Reviewed daily check in sheet and reported a 3/5, with 5 being severe, for suicidal ideation and a 2/5 for suicidal intention. Pt not appear to be imminent risk to harm self. Pt was future oriented throughout session and stated did not need to meet with anyone individually. Stated she would be here on Friday. Client Response/Progress/Benefit: [] Pt participated at times during the group discussion. Attentive. Client reported over the weekend she hung out with one of her best friends that she hasn't seen in a year. Client stated when they were hanging out she found out he was no longer sober, which she stated was disappointing. Client stated a mental health win is not relapsing on drugs because she knows he had drugs on him while they were together. Client expressed frustration with sobriety because on one hand she doesn't want to go back to using but on the other hand still has urges and apathy. Client identified additional mental health positive as getting laundry done. Client stated current stressor is discharging from IOP soon which increases her anxiety that she won't be able to maintain the progress she has made. Benefited from group support, encouragement, and feedback. Will continue in IOP to continue use of healthy coping, challenge distortions, and prevent decompensation.
--- NOTE | 2022-07-02 10:10 | BH.SGPN.GN ---
Behaviors/Verbalizations/Mental Status: [] Eye contact is good. Motor activity is appropriate. Appearance is casual. Speech is Appropriate. Mood is euthymic. Affect is full. Thoughts are linear and logical. No evidence of psychosis. Client Response/Progress/Benefit: [] Pt did not participate in group discussions. Attentive during psychoeducation. Engaged and participated in experiential activity. Attentive as peers worked together to define pitfalls in relation to mental health. Group was able to identify several common examples of pitfalls which included; negative automatic thoughts, sad songs, isolation, not communicating, self-harm, impulsive spending, over-committing oneself, and self-sabotage. Able to correlate experiential activity and topic of pitfalls. Able to identify strategies to use in activity (as well as in life) to overcome or manage mental health pitfalls. Benefited from increased understanding of types of common pitfalls that impact mental health. Will continue in IOP to maintain safety, prevent decompensation, increase healthy coping, and improve functioning. Narrative Note: []
--- NOTE | 2022-07-02 11:10 | BH.SGPN.GN ---
Behaviors/Verbalizations/Mental Status: []Pt alert and oriented, casually dressed and groomed. Eye contact good. Motor activity appropriate. Speech within normal limits. Affect full-smiling at appropriate times, mood depressed. Thoughts linear, logical, no signs of hallucinations or delusions.? Client Response/Progress/Benefit: []Pt receptive of session, engaged throughout AEB pt?contributing to discussion, as well as taking notes.? Pt and group processed how the emotions and perspective of the group impacted the activity positively and negatively at times. Pt did well in the activity to stay engaged.?Group worked together to identify different coping skills to help manage pitfalls. Pt identified pitfalls they struggle with such as lashing out, negative self-talk, and avoidance. Pt plans to work on these pitfalls by using opposite action to communicate instead of bottling up emotions and issues with her roommates. ?Benefited from identifying personal pitfalls and strategies to overcome these pitfalls. Will continue IOP tx to increase use of healthy coping skills, reduce avoidance, and improve daily functioning. ? Narrative Note: []
--- NOTE | 2022-07-05 09:00 | BH.SGPN.GN ---
Behaviors/Verbalizations/Mental Status: []Eye contact fair to good, casually dressed, motor activity appropriate, speech normal rate and tone, mood dysthymic and anxious, congruent affect, thoughts linear and intact, no evidence of delusions or hallucinations. Reviewed pt's symptom tracker, reports of suicidal ideation within pt baseline and pt denies any active plan, or intent as of this date 07/05/22. Future oriented. Client Response/Progress/Benefit: [] Pt responded well to session, attentive and willing to process with group. Pt reports feeling burnt out this morning. Pt did well to identify current mental health wins which included being proactive and reaching out to her insurance to see who she can see for optometry. Pt shared an additional win as cleaning her house yesterday rather than continuing to avoid. Shared stressor as a friend?s recent relapse which she does not want to trigger her own addictive behaviors as she has struggled with substance use. Able to identify benefits of setting boundaries and receptive of supportive feedback provided by the group. Appeared to benefit from group?discussion and supportive environment. Recommended continued IOP tx to continue to improve consistency of healthy skill application, promote mood stability and use of healthy anxiety management skills, as well as prevent decompensation. Narrative Note: []
--- NOTE | 2022-07-05 11:10 | BH.SGPN.GN ---
Behaviors/Verbalizations/Mental Status: []Pt alert and oriented, casually dressed and groomed. Eye contact good. Motor activity appropriate. Speech within normal limits. Affect constricted, mood dysthymic. Thoughts linear, logical, no signs of hallucinations or delusions. Client Response/Progress/Benefit: []Pt responded well to session, engaged and providing examples. Pt engaged as group continued discussion on acceptance and how lack of acceptance can impact mental health. Pt and peers identified what makes acceptance challenging and pt completed a self-reflection exercise on what is hard to accept in pt's life. Pt shared it is hard to accept the trauma in her past and that her mental health disorders will never go away. Pt also identified how further lack of acceptance could lead to more harm for pt including: increased emotional distress and more unresolved issues. Group identified strategies to increase acceptance and pt selected thinking in the nicole and self-compassion to help pt increase acceptance. Pt appeared to benefit from gaining insight and strategies to increase acceptance. Pt will continue IOP tx to increase distress tolerance skills, reduce use of unhealthy coping skills, and improve daily functioning. Narrative Note: []
--- NOTE | 2022-07-05 12:15 | BH.MDN ---
Multi-Disciplinary Note - Note 45-min Individual Date: 07/05/22 Purpose of session/treatment goals addressed:: Purpose of session was to address goals 1 & 2 from MTP. Additionally, worked with pt to address current stressor causing increased concerns regarding maintaining sobriety. Eye Contact:: Good Motor Activity:: Appropriate Appearance:: Casual Speech:: Appropriate Mood:: Anxious, Irritable, Depressed Affect:: Congruent Thoughts:: Linear, Logical, No evidence of hallucinations/delusions noted Staff Interventions:: thought challenging, motivational interviewing, psychoeducation on: - harms reduction, relapse prevention, CBT techniques, strengths perspective, completed risk assessment / safety planning Client Response:: Pt receptive of session, engaged throughout. Reports some anxiety and guilt today as pt reports she recently engaged in substance use. Shared that her roommate lost his job this week and therefore was home all day with pt. Roommate encouraged pt to ?day drink? with him as he was uypset about his job and pt agreed. Shared getting drunk yesterday but believes this will not impact her sobriety from cocaine as ?I don?t have a problem with alcohol. I?ve definitely had a problem with it in the past, but not anymore?. Went on however to share that she had another potentially triggering situation occur earlier in the week. Shared that a close friend had arrived at her house high on various substances, meaning that he had relapsed after recently reaching a year of sobriety. Pt discussed feeling upset and angry about this, and much of session was devoted to allowing pt time to process. Pt reports feeling conflicted as she wants to be a supportive friend but also recognizes that it is not healthy for her to be around someone in active addiction. Receptive of discussion on healthy avoidance to prevent relapse. As well as ways to communicate her needs and set a boundary while also being supportive. Shared plans to be honest about her need to be around other?s who are sober as she does not want to relapse, as well as encourage her friend to consider seeking treatment to address his own needs. Additionally discussed the potential risks of other substance use, such as marijuana and alcohol, on maintaining sobriety. Also, discussed impacts of substance use on mental health and ability to effectively utilize skills. Pt shared feeling she has made progress in improving her overall perspective, improved self-compassion, and reduced suicidal ideation. Noted not wanting to risk worsening her sx of impeding her ability to continue to make gains; however, does not feel ready to quit using other substances at this time. Risks/Concerns:: Pt denies any active plans or intent to engage in self-harming behaviors. Denies active suicidal ideation, plan or intention to date, 07/05/22. Reports recently engaging in alcohol use to excess but denies urges to relapse on other drugs. Willing to discuss relapse prevention with therapist. Progress Toward Goals/Plan:: Some regression noted. Pt self-reports drinking to excess the previous date and reports increased marijuana use. Acknowledges that this may increase likelihood of other substance use; however, pt denies belief that she will do so. Reports wanting to maintain sobriety. Reports ongoing anxiety; however, continues to deny consistent skill application and believes current prescribed medications are ineffective as well. Pt would like to continue with counseling services following IOP d/c next week, though is not sure if she is interested in another outpatient group setting. Will consider. Would like to do aftercare tx, however this is dependent on pt progress and level of care needed. Pt is to continue IOP to increase healthy coping skill application, improve mood stability, and prevent decompensation. Time Stopped:: 11:20
--- NOTE | 2022-07-08 10:10 | BH.SGPN.GN ---
Behaviors/Verbalizations/Mental Status: [] Eye contact is good. Motor activity is appropriate. Appearance is casual. Speech is Appropriate. Mood is anxious. Affect is constricted. Thoughts are linear and logical. No evidence of psychosis. Client Response/Progress/Benefit: [ ] Client was did not provide much input during group, but was attentive AEB note taking and eye contact.. Attentive during psychoeducation on the six types of boundaries (physical, emotional, intellectual, sexual, time, and material) AEB note-taking. Agreed with peers contributed interactive discussion on defining what a boundary is in mental health. Group identified challenges to setting boundaries which included; fear of other's response, not knowing how to set a boundary, fear of rejection, fear of disappointing the other person, historic patterns, etc. Group identified the benefits to setting boundaries such as to help maintain identity, increased control, minimize negative influences, and increased confidence. Group discussed the mental health benefits to establishing boundaries at work, school, and home. Client benefited from increased awareness and insight on the importance/benefit to setting health boundaries. Will continue in IOP to prevent decompensation, increase positve self image, and improve functioning. Narrative Note: []
--- NOTE | 2022-07-08 11:15 | BH.SGPN.GN ---
Behaviors/Verbalizations/Mental Status: [] Client alert and oriented, casually dressed and appropriately groomed. Eye contact good. Motor activity WNL. Speech within normal limits. Affect constricted, mood euthymic. Thoughts linear and intact. no signs of delusions or hallucinations. Client Response/Progress/Benefit: [] Client responded well to session AEB listening attentively to peers, providing input, as well as taking notes throughout. Client contributed some on psychoeducation on different boundary setting styles with reporting connecting most with rigid style of boundary setting. Participated in group discussion brainstorming various strategies for improving healthy boundary setting. Client reports wanting to begin using skill of waiting to respond until you are ready. Seemed to benefit from increased awareness of how different boundary styles can impact mental health. Will continue IOP tx to increase consistent application of skills, increase self-care, and increase overall functioning. Narrative Note: []
--- NOTE | 2022-07-08 15:04 | BH.MDN_ITS ---
Multi-Disciplinary Note - Note 45-min Individual Time Started:: 09:37 Date: 07/08/22 Purpose of session/treatment goals addressed:: Purpose of session was to review treatment progress, address current stressors, identify strategies to maintain progress, and coordinate aftercare plans. Eye Contact:: Good - tearful at times throughout Motor Activity:: Appropriate Appearance:: Disheveled Speech:: Appropriate Mood:: Anxious, Depressed Affect:: Congruent Thoughts:: Linear, Logical, No evidence of hallucinations/delusions noted Staff Interventions:: motivational interviewing, CBT techniques, discharge planning, strengths perspective, treatment planning - coordinated aftercare appointments Client Response:: Pt receptive of session, engaged throughout. Reports struggling to sleep the past few days, noting ?I can?t turn my brain off?. Indicates her sleep routine has not changed, however did admit to smoking marijuana prior to bed. Open to discussion on impacts smoking may have on maintaining anxiety already present. Pt feels this is not contributing to lack of sleep and continues to feel her sleep medications are ineffective. Discussed ongoing frustration in finding psychiatric medications that she finds helpful. Shared ongoing paranoia and intrusive thoughts, though continues to report limited consistency in application of coping and thought challenging skills learned. Discussed recent stressor, explaining that she recently was informed a friend had overdosed over the weekend. Processed with therapist and expressed anger and disappointment. Shared wishing she had developed sober friendships several years ago as she has lost a number of friends to overdose/substance abuse. Pt discussed feeling ?trapped? in [facility] as many of the individuals she used to use with are in the area. Declined recommendations for local AA/NA groups. Pt reports wishing she had reliable transportation as well, as she feels isolated in her home and is nervous to discharge from [facility] out of fear she will no longer have healthy social supports. Reports she would like to continue with more intensive therapy as she feels she is still not yet ready to step down to the individual outpatient level. Receptive of referral information on [facility]?s DBT program as pt agrees she has met the maximum benefit of this IOP program and may benefit from DBT specific tx. 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 Although pt continues to struggle with her mental health, she was able to identify some progress. Iden tified treatment progress since starting IOP to include: no longer having suicidal thoughts, decrease in intensity of depressive symptoms, improved self- compassion and hope for her future. Pt stated strategies that can help her maintain progress includes: using healthy distractions, being around friends, assertive communication, follow through with outpatient mental health providers, challenge distorted thoughts, and maintaining sobriety. Risks/Concerns:: denies suicidal/homicidal ideation, plan or intention to date. future focused. Progress Toward Goals/Plan:: Pt has made treatment progress AEB pt's self-report of improved outlook, increased self-compassion, and reduced overall depression and anxiety. Continues to struggle significantly with consistent skill application, emotion regulation, and depressive sx. Pt has been able to maintain safety since starting IOP. Plan is for pt to discharge from IOP 07/12/22. Pt has appointment on 07/30/22 for intake at [facility] for their DBT IOP tx program in order to continue to improve sx. Pt encouraged to continue with pre- established regular outpatient telehealth counseling and psychiatry. Next counseling appointment is 07/12 and pt reports just having a psychiatry appointment this past 07/05/22. Time Stopped:: 10:23
--- NOTE | 2022-07-15 10:20 | BH.SGPN.GN ---
Behaviors/Verbalizations/Mental Status: []Client alert and oriented, casually dressed and groomed. Eye contact good. Motor activity appropriate. Speech within normal limits. Affect congruent, mood agitated, depressed. Thoughts linear, logical, no signs of hallucinations or delusions. Client Response/Progress/Benefit: []Client receptive to session AEB listening attentively to others and taking notes, continues to remain mostly passive in participation. Worked with group to brainstorm the positive and negative aspects of stress on physical and mental health. Group did well to identify the benefits of stress as well as the impact of distress on performance, relationships, and mental health. Client identified their personal top stressors as: her unmanaged mental health symptoms, struggling to ?find the right help?, and finances. Client reports when the stress overflows client reacts by sleeping to avoid, lashing out, and giving up. Client seemed to benefit from increased awareness of current stressors and impact stress has on mental health. Recommended to continue IOP tx to stabilize moods, coordinate aftercare, and prevent decompensation. Narrative Note: []
--- NOTE | 2022-07-15 11:20 | BH.SGPN.GN ---
Behaviors/Verbalizations/Mental Status: []Pt alert and oriented, casually dressed and groomed. Eye contact good. Motor activity appropriate. Speech within normal limits. Affect congruent, mood depressed, anxious. Thoughts linear, logical, no signs of hallucinations or delusions. Client Response/Progress/Benefit: []Pt engaged participant AEB listening attentively to others and contributing to discussion. Attentive during psychoeducation on the 4 A's of Coping with Stress (Avoid, Alter, Adapt, Accept). Participated in experiential activity in which group members had to utilize stress management skills in the moment. Pt was more passive during activity when the group was struggling with accomplishing the task. Pt engaged in review of the 4 A?s and picked wanting to work on altering her approach to her mental health by reaching out to the resources being provided. Benefited from processing in the moment stress management strategies and identifying new ways to cope with stress. Will continue in IOP tx to prevent decompensation, increase healthy boundaries and use of healthy coping skills, and improve mood stability. Narrative Note: []
--- NOTE | 2022-07-15 12:51 | BH.MDN ---
Multi-Disciplinary Note - Note 45-min Individual Time Started:: 09:20 Date: 07/15/22 Purpose of session/treatment goals addressed:: To address current barriers, stressors, and help pt get connected to outpatient services. Eye Contact:: Good - tearful at times throughout Motor Activity:: Appropriate Appearance:: Casual Speech:: Appropriate Mood:: Anxious, Depressed Affect:: Congruent Thoughts:: Linear, Logical, No evidence of hallucinations/delusions noted Staff Interventions:: thought challenging, motivational interviewing, discharge planning - connected pt to resources and began scheduling for EMDR at [facility] as well as followed up with [facility], other - discussed transportation services in the area. Client Response:: Pt responded well to session, engaged throughout. Pt reports she wasn?t feeling well the past few days and laid in bed most of the day. Was however able to accomplish a few tasks around the house, such as laundry. Reports ongoing frustrations with her roommates regarding division of household responsibilities, though reports trying to remain consistent with her boundaries and continue to advocate for her needs to be met. Pt reports doing well to practice emotion regulation skills in relation to this stressor, as in the past she would have ?lost it on them?. Shared continued struggles with depression and anxiety, and although she feels the IOP program has been helpful she has not made the progress she had hoped to. Self-reports inconsistent skill application and negative perspective, reporting ?nothing helps, I feel like I?m going to be like this forever?. Pt and therapist worked to challenged these thoughts and highlight areas of progress that pt has made since beginning IOP tx. Pt reports anxiety about discharging form the IOP group as she feels the social interaction is good for her. Reminded pt that she will beginning [facility]?s DBT group on 07/30 which will provide additional interaction. Pt shared also wanting more in-person connection as this is limited and her outpatient providers are all virtual. Open to scheduling with [facility] for EMDR services as pt has discussed impacts of past trauma on current functioning and agree this would be beneficial as it would also provide in-person interaction on a more consistent basis. Identified transportation as on issue and pt was provided with local transportation resources, as well as informed that [facility] provides transportation for their clients as well. Risks/Concerns:: Pt denies any active suicidal ideations, plan, or intent as of 07/15/22. Pt reports ability to maintain safety today. Progress Toward Goals/Plan:: Progress noted in pt's willingness to try EMDR therapy and ability to reflect on some wins. Pt's distress tolerance is still low and her symptoms have not decreased per her report. Her affect and engagement continues to be variable in the group setting. Pt has chronic suicidal ideations, but denies any intent today. Pt reports limited motivation to consistently apply skills she has learned and often focuses on stressors outside of her control, rather than identifying those within pt control. This may be reinforcing feelings of hopelessness/helplessness. Pt will continue IOP tx to prevent decompensation and improve mood stability. Time Stopped:: 10:00
== END 2022-07-16 23:59 ==
LOC: BHIOP 07:30
PROVIDERS: PCP Family Medicine; Visit Provider Psychiatry & Neurology Psychiatry
DX: F31.9 Bipolar disorder, unspecified (principal); F60.3 Borderline personality disorder; F43.10 Post-traumatic stress disorder, unspecified; F12.90 Cannabis use, unspecified, uncomplicated; F14.91 Cocaine use, unspecified, in remission; Z79.899 Other long term (current) drug therapy; E66.3 Overweight
CPT/HCPCS: 99213; H2012; H2020; S9480; 90834; 90837

== ENCOUNTER 2022-09-09 19:43 | Emergency (ER) | payer MEDICAID, SELFPAY ==
[2022-09-09 19:44] VITALS: BP 160/96; PULSE 120; RESP 22; TEMP 36.4; O2SAT 97; BMI 31.6
[2022-09-09] MEDS: hydrOXYzine PAM 25 MG Capsule PO (21:36)
[2022-09-09 21:50] LABS: Bacteria 0 SEEN /hpf (None Seen); Mucous, Urine 0 SEEN /hpf (<or=2+); Red Blood Cells-Urine 0 SEEN /hpf (0-5); White Blood Cells 0 SEEN /hpf (0-5)
[2022-09-09 21:51] LABS: Absolute Lymphocyte Count 1.28 X10^3/uL (0.83-4.51); Absolute Neutrophil Count 8.4 X10^3/uL (2.0-7.7); Basophil# 0.05 X10^3/uL; Basophil% 0.5 % (0-1); Eosinophil# 0.07 X10^3/uL; Eosinophils% 0.7 % (0-5); Hematocrit 44.9 % (37-47); Hemoglobin 15.5 g/dL (12.0-15.0); Lymphocyte # 1.28 X10^3/ul (0.83-4.51); Lymphocyte % 12.7 % (19-41); Mean Corp Hgb Conc 34.5 g/dL (32-36); Mean Corpuscular Hgb 32.2 pg (27.0-32.0); Mean Corpuscular Volume 93.3 fL (81-99); Mean Platelet Vol. 9.9 fl (6.2-12.0); Monocyte# 0.26 X10^3/uL; Monocyte% 2.6 % (0-10); NRBC Flagged by Analyzer 0 % (0-5); Neutrophil # 8.39 X10^3/uL (2.7-7.7); Neutrophil % 83.2 % (47-70); Platelet Count 225 K/mm3 (150-450); RBC Distribution Width CV 12.1 % (11.6-14.6); RBC Distribution Width SD 42.4 fl (35.1-43.9); Red Blood Count 4.81 M/mm3 (4.2-5.4); White Blood Count 10.1 K/mm3 (4.4-11.0)
[2022-09-09 21:52] LABS: Glucose, Dipstick Normal (Normal); Leukocyte Esterase-Dipstick 25 /ul (Negative); Nitrite-Dipstick Negative (Negative); Occult Blood-Urine 10 /ul (Negative); Protein-Dipstick Negative (Negative); Urine Bilirubin Dipstick Negative (Negative); Urine Urobilinogen Normal (Normal)
[2022-09-09 22:01] LABS: Color, Urine Yellow (Yellow); Ketone-Dipstick 150 mg/dl (Negative)
[2022-09-09 22:02] LABS: Squamous Epithelial Cells - UA 5-10 SEEN /hpf (5-10); Urine Clarity Clear (Clear)
[2022-09-09 22:04] LABS: Internal QC Validated? YES +Cl - CLEAR BKGD; Pregnancy, Serum, hCG Quali. NEGATIVE Negative
[2022-09-09 22:06] LABS: Anion Gap 7 (5-15); BUN 7 mg/dL (7-18); BUN/Creat Ratio 8.8 RATIO (10-20); Calcium,Total 8.7 mg/dL (8.5-10.1); Chloride 106 mmol/L (98-107); EST Glomerular Filtration Rate 94 mL/min (>60); Est Glom Filt Rate - Afr Amer 114 mL/min (>60); Estimated Creatinine Clearance 93.64 ml/min; Glucose 91 mg/dL (74-106); Potassium 3.6 mmol/L (3.5-5.1); Sodium Level 137 mmol/L (136-145)
--- NOTE | 2022-09-09 22:46 | EX.ED.DYSGE1 ---
HPI History of Present Illness Chief Complaint: Anxiety Informant: patient Onset/Context/Timing Onset: Days (5) Context: Gradual Onset Timing: Continuous Quality: Anxious Location: Generalized Worsened by: Nothing Relieved by: Nothing Narrative Narrative: Patient presents with acute anxiety that became worse tonight. Patient states she has not slept in the last 5 days. Patient states her psychiatrist stopped some of her sleeping medications. Patient states she has been feeling anxious and having racing thoughts of the last 5 days. Patient denies any suicidal or homicidal ideations. Patient admits to some nausea but denies any vomiting. Patient admits to a mild headache. Patient states nothing makes her symptoms worse and nothing makes them better. Patient denies any fevers or chills. [facility] Medical History (Updated 09/09/22 @ 22:[address] Chidi Zavala DO) Bipolar disorder, unspecified Borderline personality disorder Cannabis use disorder History of cocaine use PTSD (post-traumatic stress disorder) Home Medications norgestimate 0.25 mg-ethinyl estradiol 35 mcg tablet ([place]) 1 tab PO DAILY 10/22/17 [History Last Taken Unknown] dextroamphetamine-amphetamine ER 25 mg 24hr capsule,extend release (Adderall XR) 25 mg PO DAILY 05/29/22 [History Last Taken Unknown] sertraline 100 mg tablet (Zoloft) 200 mg PO DAILY 05/29/22 [History Last Taken Unknown] olanzapine 2.5 mg tablet (Zyprexa) 2.5 mg PO BID #60 tabs 06/12/22 [Rx Last Taken Unknown] ondansetron 4 mg disintegrating tablet 4 mg PO Q8H PRN nausea and vomiting 1 week #10 tabs 06/12/22 [Rx Last Taken Unknown] aripiprazole 10 mg tablet (Abilify) 10 mg PO DAILY 06/26/22 [History Last Taken Unknown] trazodone 100 mg tablet 100 mg PO QHS 06/26/22 [History Last Taken Unknown] hydroxyzine pamoate 25 mg capsule 50 mg PO TID PRN PRN Anxiety #30 CAPSULES 09/09/22 [Rx Last Taken Unknown] Allergy/AdvReac Type Severity Reaction Status Date / Time No Known Allergies Allergy Verified 11/16/17 15:20 Surgical History (Updated 09/09/22 @ 22:[address] Chidi Zavala DO) Hx of oral surgery Social History Smoking Status: Current every day smoker tobacco type: cigarettes ROS ROS ED Constitutional Constitutional ED: Denies chills or fever(s) Eyes Eyes: Denies blurry vision or change in vision ENT ENT ED: Denies rhinorrhea or sore throat Cardiovascular Cardiovascular: Denies chest pain or palpitations Respiratory/Chest Respiratory/Chest: Denies cough or dyspnea Gastrointestinal Gastrointestinal: Reports nausea; Denies vomiting Genitourinary Genitourinary ED: Denies dysuria or hematuria Musculoskeletal Musculoskeletal: Denies back pain or neck pain Integumentary Denies abscess or rash Neurologic Neurologic: Reports headache(s); Denies weakness Psychiatric Psychiatric: Reports anxiety; Denies suicidal ideation or suicidal thoughts Allergic/Immunologic Allergic/Immunologic ED: Denies mouth swelling or urticaria EXAM Physical Exam Const Vital Signs: 09/09/22 19:44 Temperature 97.6 F L Temperature Source Temporal Pulse Rate 120 H Respiratory Rate 22 H Blood Pressure 160/96 H Blood Pressure Mean 117 Pulse Ox 97 Oxygen Delivery Method Room Air Positive well nourished and well developed General Appearance ED: well developed HEENT Reports moist mucous membranes Neck supple and no JVD Resp normal respiratory effort and clear to auscultation bilaterally Cardio regular rate, regular rhythm and no murmurs GI normal to inspection, nondistended, normoactive bowel sounds and non-tender Palpation: soft Extremity normal to inspection General Extremety ED: Negative for edema or tenderness General Extremity: Negative for edema Neuro oriented x3, CN's II-XII intact bilaterally and no sensory deficits noted Sensorium / Orientation: alert Motor Exam: strength 5/5 throughout Psych Appearance: grossly normal Activity / Motor Behavior: appropriate eye contact Speech: normal speech Mood & Affect: anxious Thought Content: No suicidality and No homicidality Insight: insight good Judgement: judgement good Skin no rashes or lesions noted MDM MDM MDM Narrative Medical decision making narrative: Differential diagnosis includes electrolyte abnormality, infection, , and anxiety. CBC will be obtained to assess for leukocytosis and anemia. Basic metabolic profile will be obtained to assess for electrolyte abnormality and renal function. Serum hCG will be obtained to assess for status. Urinalysis will be obtained to assess for urinary tract infection and hematuria. Lab Data Attestation: I reviewed the patient's lab results. Lab results narrative: CBC was reviewed and was within normal limits. Basic metabolic profile was reviewed and was within normal limits. Serum hCG was reviewed and was negative. Urine culture was reviewed. Urine ketones were 150. There is no evidence of urinary tract infection or hematuria. Labs: Laboratory Results - last 24 hr 09/09/22 09/09/22 09/09/22 21:38 21:38 21:38 WBC 10.1 RBC 4.81 Hgb 15.5 H Hct 44.9 MCV 93.3 MCH 32.2 H MCHC 34.5 RDW Std Deviation 42.4 RDW Coeff of Nancy 12.1 Plt Count 225 MPV 9.9 Immature Gran % (Auto) 0.300 Neut % (Auto) 83.2 H Lymph % (Auto) 12.7 L [place] % (Auto) 2.6 Eos % (Auto) 0.7 Baso % (Auto) 0.5 Absolute Neuts (auto) 8.4 H Absolute Lymphs (auto) 1.28 Nucleated RBC % 0 Sodium 137 Potassium 3.6 Chloride 106 Carbon Dioxide 24.0 Anion Gap 7 BUN 7 Creatinine 0.80 Estim Creat Clear Calc 93.64 Est GFR (MDRD) Af Amer 114 Est GFR (MDRD) Non-Af 94 BUN/Creatinine Ratio 8.8 L Glucose 91 Calcium 8.7 Serum , Qual NEGATIVE Urine Color Urine Clarity Urine pH Ur Specific [place] Urine Protein Urine Glucose (UA) Urine Ketones Urine Occult Blood Urine Nitrite Urine Bilirubin Urine Urobilinogen Ur Leukocyte Esterase Urine RBC Urine WBC Ur Squamous Epith Cells Urine Bacteria Urine Mucus 09/09/22 21:40 WBC RBC Hgb Hct MCV MCH MCHC RDW Std Deviation RDW Coeff of Nancy Plt Count MPV Immature Gran % (Auto) Neut % (Auto) Lymph % (Auto) [place] % (Auto) Eos % (Auto) Baso % (Auto) Absolute Neuts (auto) Absolute Lymphs (auto) Nucleated RBC % Sodium Potassium Chloride Carbon Dioxide Anion Gap BUN Creatinine Estim Creat Clear Calc Est GFR (MDRD) Af Amer Est GFR (MDRD) Non-Af BUN/Creatinine Ratio Glucose Calcium Serum , Qual Urine Color Yellow Urine Clarity Clear Urine pH 7.0 Ur Specific [place] 1.010 Urine Protein Negative Urine Glucose (UA) Normal Urine Ketones 150 A* Urine Occult Blood 10 H Urine Nitrite Negative Urine Bilirubin Negative Urine Urobilinogen Normal Ur Leukocyte Esterase 25 H Urine RBC 0 SEEN Urine WBC 0 SEEN Ur Squamous Epith Cells 5-10 SEEN Urine Bacteria 0 SEEN Urine Mucus 0 SEEN Treatment and Re-Evaluation :: Patient was given a dose of hydroxyzine here. Patient was instructed to follow-up with her psychiatrist in 3 to 5 days for reevaluation. Patient was instructed to use [id number] Benadryl as needed. Patient was instructed to return if worse in any way. Patient understood and was agreeable with the plan. All questions were answered. Discharge Plan Triage Chief Complaint: Anxiety ED Provider: Chidi Zavala Dx/Rx/DC Orders Clinical Impression: Acute anxiety, Insomnia Instructions: ED Insomnia, ED Panic Attack Prescriptions: New hydroxyzine pamoate [hydroxyzine pamoate] 25 mg capsule 50 mg PO TID PRN PRN (Reason: Anxiety) Qty: 30 0RF No Action norgestimate-ethinyl estradiol [[place]] 1 EACH tablet 1 tab PO DAILY Label Comments: TAKE 1 TABLET BY MOUTH ONCE DAILY sertraline [Zoloft] 100 mg Tablet 200 mg PO DAILY dextroamphetamine-amphetamine [Adderall XR] 25 mg Capsule,Extended Release 24hr 25 mg PO DAILY olanzapine [Zyprexa] 2.5 mg tablet 2.5 mg PO BID Qty: 60 0RF ondansetron 4 mg tablet,disintegrating 4 mg PO Q8H PRN (Reason: nausea and vomiting) 7 Days Qty: 10 0RF trazodone 100 mg Tablet 100 mg PO QHS aripiprazole [Abilify] 10 mg Tablet 10 mg PO DAILY Primary Care Provider: Devin Gardner Referrals: Devin Gardner MD [Primary Care Provider] - 3-5 Days Disposition Disposition: Home, Self Care
== END 2022-09-09 23:05 | disposition home or self-care (01) ==
PROVIDERS: Emergency Provider Emergency Medicine; PCP Family Medicine; Visit Provider Emergency Medicine
DX: F41.9 Anxiety disorder, unspecified (principal); F31.9 Bipolar disorder, unspecified; G47.00 Insomnia, unspecified; F17.210 Nicotine dependence, cigarettes, uncomplicated; Z79.899 Other long term (current) drug therapy
CPT/HCPCS: 80048; 81001; 84703; 85025; 99284; A4216